=== PATIENT | male | born 1980 | race Hispanic/Latino ===

== ENCOUNTER 2024-11-09 12:30 | Emergency (ER) | payer OTHER ==
--- OUTSIDE RECORDS SUMMARY | 2024-11-09 13:04 | XMS REPORT | Continuity of Care Document ---
Author Name Unknown Address [address] [facility] [address] [place] [address] [facility] thconnect Address [address] [facility] [place] [place] [address] Care Team Providers Care Collections Rep Name Role Phone Kenny ELLIS, Dayanara Barros [facility] LONNY SALAMANCA Attending Clinician Benny Hutton MD, Lonny Osorio Attending Clinician [phone] Pia Ramos RN Attending Clinician RIO Conrad Attending Clinician TESSA Ricci Attending Clinician LONNY Elena Admitting Clinician Benny Hutton MD, Lonny Osorio Admitting Clinician [phone] DEEDEE HARLEY Admitting Clinician Ankur galindo Payers Payer Name Policy Type Policy Number Effective Date Expirati on Date Source [employer] COMM [id number] 2012 00:00:00 Problems Condition Name Condition Details Condition Category Status Onset Date Resolution Date Last Treatment Date Treating Clinician Comments Source Chronic neck pain Chronic neck pain Disease Active 2023-09 00:00: 00 Hiral Smith Chronic pain syndrome Chronic pain syndrome Disease Active 2023-09 00:00: 00 Hiral tinoco [place] Smith Current smoker Current smoker Disease Active 2023-09 00:00: 00 Hiral Smith Hypertensi on Hypertensi on Disease Active 2023-09 00:00: 00 Hiral tinoco [place] Smith Numbness of right hand Numbness of right hand Disease Active 2023-09 00:00: 00 Hiral tinoco [facility] Social History Social Habit Start Date Stop Date Quantity Comments Source Gender identity 2023-12-14 00:20:35 Identifies as male gender (finding) [facility] History of tobacco use Cigarette Smoker [facility] Sexual orientation [facility] Alcoholic beverage intake 2024-08-03 00:00:00 2024-08-03 00:00:00 Ex-drinker (finding) [facility] History of Social function 2024-08-03 00:00:00 2024-08-03 00:00:00 [facility] Smoking Status Start Date Stop Date Source Smokes tobacco daily 2024-07-28 00:00:00 [facility] Medications Ordered Medication Name Filled Medication Name Start Date Stop Date Current Medication? Ordering Clinician Indication Dosage Frequency Signature (SIG) Comments Components Source oxyCODONE (Roxicodone ) immediate release tablet 5 mg oxyCODONE (Roxicodone ) immediate release tablet 5 mg 2023-09 11:33: 51 Yes 5mg Q4H [Order 1 Start] Name: oxyCODONE (Roxicodon e) immediate release tablet 5 mg Signed Summary: 5 mg, Oral, Every 4 hours PRN, moderate pain (4-6), Starting on Fri08/03/24 at 1133, For 2 doses, Recovery (only) [Order 1 End] [Order 2 Start] Name: oxyCODONE (Roxicodon e) immediate release tablet 10 mg Signed Summary: 10 mg, Oral, Every 4 hours PRN, severe pain (7-10), Starting on Fri08/03/24 at 1133, For 2 doses, Recovery (only) [Order 2 End] Hiral Smith glucagon injection 1 mg glucagon injection 1 mg 2023-09 11:33: 41 Yes 1mg 1 mg, Intramuscu lar, As needed, For BG < 70 mg/dL if no IV access and patient is either Unconsciou s, unable to swallow or npo, Starting on Fri08/03/24 at 1133, Recovery (only), For BG < 70 mg/dL if no IV access and patient is either Unconsciou s, unable to swallow or npo and notify MD. Hiral Ponce [facility] dextrose 50 % solution 25 g dextrose 50 % solution 25 g 2023-09 11:33: 41 Yes 25g 25 g, Intravenou s, As needed, other, if Blood Glucose </= 50 mg/dL, Starting on Fri08/03/24 at 1133, Recovery (only), If BG </=50 mg/dL, give 50 mL of D50W IV push STAT and notify MD. Hiral Smith dextrose 50 % solution 12.5 g dextrose 50 % solution 12.5 g 2023-09 11:33: 41 Yes 12.5g 12.5 g, Intravenou s, As needed, low blood sugar, if Blood Glucose 51- 69 mg/dL, Starting on Fri08/03/24 at 1133, Recovery (only), For BG 51-69 mg/dL and patient UNCONSCIOU S OR UNABLE TO SWALLOW OR NPO: Give 25 mL of D50W IV push and notify MD. Hiral Smith dexAMETHaso ne (Decadron) injection 4 mg dexAMETHaso ne (Decadron) injection 4 mg 2023-09 11:33: 41 Yes 4mg 4 mg, Intravenou s, Once as needed, nausea/vom iting not responsive to ondansetro n., Starting on Fri08/03/24 at 1133, For 1 dose, Recovery (only) Hiral Smith ondansetron (Zofran) injection 4 mg ondansetron (Zofran) injection 4 mg 2023-09 11:33: 41 Yes 4mg 4 mg, Intravenou s, Once as needed, nausea, vomiting, Starting on Fri08/03/24 at 1133, For 1 dose, Recovery (only), May repeat once (maximum dose = 8mg). Do not repeat if patient has received Ondansetro n intraopera tively. Hiral Smith albuterol (2.5 MG/3ML) 0.083% nebulizer solution 2.49 mg albuterol (2.5 MG/3ML) 0.083% nebulizer solution 2.49 mg 2023-09 11:33: 41 Yes 2.49mg 2.49 mg, Nebulizati on, Every 20 min PRN, wheezing, Starting on Fri08/03/24 at 1133, Recovery (only) Hiral Ponce Epic diphenhydrA MINE (BENADryl) injection 12.5 mg diphenhydrA MINE (BENADryl) injection 12.5 mg 2023-09 11:33: 41 Yes 12.5mg 12.5 mg, Intravenou s, Once as needed, itching, Starting on Fri08/03/24 at 1133, For 1 dose, Recovery (only) Hiral Smith naloxone (Narcan) injection 0.04 mg naloxone (Narcan) injection 0.04 mg 2023-09 11:33: 41 Yes .04mg 0.04 mg, Intravenou s, As needed, opioid reversal, every 2 minutes PRN to reverse sedation, Starting on Fri08/03/24 at 1133, For 8 doses, Recovery (only), Keep available for immediate use. Stop epidural infusion. Call Anesthesio logist STAT and Notify Pain Service (Dilute 0.4mg/mL in 9 mL saline) Hiral Smith HYDROmorpho ne (Dilaudid) injection 0.5 mg HYDROmorpho ne (Dilaudid) injection 0.5 mg 2023-09 11:33: 41 Yes .5mg 0.5 mg, Intravenou s, Every 10 min PRN, severe pain (7-10), Starting on Fri08/03/24 at 1133, For 4 doses, Recovery (only), Hold for respirator y rate or 8 or less. Hiral Ponce Epic HYDROmorpho ne (Dilaudid) injection 0.25 mg HYDROmorpho ne (Dilaudid) injection 0.25 mg 2023-09 11:33: 41 Yes .25mg 0.25 mg, Intravenou s, Every 10 min PRN, moderate pain (4-6), Starting on Fri08/03/24 at 1133, For 4 doses, Recovery (only), Hold for respirator y rate or 8 or less. Hiral Smith labetalol injection 10 mg labetalol injection 10 mg 2023-09 11:33: 41 Yes 10mg 10 mg, Intravenou s, Every 5 min PRN, high blood pressure, Systolic blood pressure greater than 160 mmHg and/or Diastolic blood pressure greater than 90 mmHg. Hold if Heart Rate less than 60 beats per minute., Starting on Fri08/03/24 at 1133, Recovery (only) Hiral Smith hydrALAZINE injection 10 mg hydrALAZINE injection 10 mg 2023-09 11:33: 41 Yes 10mg 10 mg, Intravenou s, Every 20 min PRN, high blood pressure, Systolic blood pressure greater than 160 mmHg and/or Diastolic blood pressure greater than 90 mmHg. Hold is Heart Rate greater than 100 beats per minute., Starting on Fri08/03/24 at 1133, For 2 doses, Recovery (only) Hiral Smith sodium chloride 0.9 % infusion sodium chloride 0.9 % infusion 2023-09 08:15: 00 Yes 50mL/h 50 mL/hr, Intravenou s, Continuous , Starting on Fri08/03/24 at 0815, Preprocedu re, Anesthesia Pre-op Hiral Smith lactated Ringer's infusion lactated Ringer's infusion 2023-09 08:15: 00 Yes 75mL/h 75 mL/hr, Intravenou s, Continuous , Starting on Fri08/03/24 at 0815, Preprocedu re, Anesthesia Pre-op Hiral Smith omeprazole (PriLOSEC) [address] capsule omeprazole (PriLOSEC) [address] capsule 03-01 00:00: 00 Yes 1{capsu le} QD Take 1 capsule by mouth 1 time each day. Hiral Smith LISINOPRIL PO LISINOPRIL PO 2021- 9- 00:00: 00 Yes 40mg 40 mg, PO, Daily, 0 Refill(s) Hiral Ponce [facility] Vital Signs Vital Name Observation Time Observation Value Comments Blanca russell Systolic blood pressure 2024-08-03 12:55:00 140 mm[Hg] [facility] Diastolic blood pressure 2024-08-03 12:55:00 85 mm[Hg] [facility] Heart rate 2024-08-03 12:55:00 67 /[facility] saturation in Arterial blood by Pulse oximetry 2024-08-03 12:55:00 99 /min [facility] Respiratory rate 2024-08-03 11:40:00 16 /min [facility] Body temperature 2024-08-03 11:30:00 36.5 Melanie [facility] Systolic blood pressure 2024-08-03 12:55:00 140 mm[Hg] [facility] Diastolic blood pressure 2024-08-03 12:55:00 85 mm[Hg] [facility] Heart rate 2024-08-03 12:55:00 67 /min [facility] Oxygen saturation in Arterial blood by Pulse oximetry 2024-08-03 12:55:00 99 /min [facility] Respiratory rate 2024-08-03 11:40:00 16 /min [facility] Body temperature 2024-08-03 11:30:00 36.5 Melanie [facility] Procedures Procedure Date / Time Performed Performing Clinicia n Source POCT glucose meter docked device 2024-09-02 00:00:00 [facility] ARTHROSCOPY, KNEE 2024-08-03 10:09:00 Lonny Salamanca [facility] ARTHROSCOPY, KNEE 2024-08-03 09:30:00 Lonny Salamanca [facility] POCT glucose meter docked device 2024-08-03 00:00:00 [facility] Oxygen Therapy - Patient Type: Adult; Device: Simple Face Mask; Rate in liters per minute: 6 Lpm; Follow Respiratory Pathway: Yes [facility] Encounters Start Date/Time End Date/Time Encounter Type Admission Type Attending [facility] Care Facility Care Department Encounter ID Source 2024-08-31 11:31:55 2024-08-31 11:31:55 Outpatient SFA SFA [id number] Timothy Arciniega 2024-08-03 06:58:00 2024-08-03 12:55:00 Outpatient Elective LONNY SALAMANCA MHESE ESE [id number] ESE 2024-08-03 06:58:00 2024-08-03 12:55:00 Hospital Encounter SalamancaAdamarisn [facility] [id number] Memoria l Kris Epic 2024-07-28 11:32:00 2024-07-28 13:43:16 Outpatient Elective ESE ESE [id number] ESE 2024-07-27 00:00:00 2024-07-27 14:14:25 [facility] [id number] [facility] [place] [facility] 2023-12-29 16:28:54 2023-12-29 16:28:54 Outpatient SFA [facility] [id number] Timothy Arciniega 2023-12-16 08:00:57 2023-12-16 08:00:57 Outpatient SFA [id number] [id number] Timothy Arciniega 2023-12-10 18:29:00 2023-12-11 00:31:00 Emergency E RIO MARQUES [facility] [id number] [facility] 2023-12-04 16:40:00 2023-12-05 13:45:00 Outpatient JADYN LONNY [facility] [id number] [facility] 2022-06-16 09:34:00 2022-06-18 15:22:00 Inpatient U TESSA DELGADO [facility] [id number] [facility] [place] [facility] Procedure Notes Date/Time Note Provider Source 2024-08-03 10:09:00 Date: 08/03/2024 Diagnosis: Pre-op Diagnosis * Chondromalacia patellae, 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 Anteriomedial plica, and deficient ACL Procedures: Arthroscopy left knee, Chondroplasty MFC, Excision anteromedial plica left knee Surgeons: * Lonny Salamanca - Primary Specimen Collector: Specimen Collector: OMAR Matos Anesthesia: General Estimated Blood Loss: None Drains: * None in log * Urine Output: None Indications: Roma Estrada is an 44 y.o. male . The risks, benefits, and alternatives of the above procedure were discussed and the patient elected to proceed. Procedure Details: The patient was seen in the preoperative area. The site of surgery was properly noted/marked if necessary per policy. The patient has been actively warmed in preoperative area. Preoperative antibiotics have been ordered and given within 1 hours of incision. Venous thrombosis prophylaxis have been ordered including chemical prophylaxis Technique: The patient was brought to the operating suite placed supine position where adequate endotracheal anesthesia was obtained. Tourniquet was placed around the left upper thigh. The left leg placed in leg carey. The left leg was prepped with the Chloraseptic and sterilely draped in the usual fashion. Procedure began by exsanguinating the leg with an Esmarch bandage and raising the tourniquet to 3 and 50 mmHg. The small incision was made in the anterolateral anterior portal and instrumentation was through the anteromedial inferior portal. The arthroscopic sheath and trocar were inserted through to the anterior lateral intraportal. The joint was viewed and was found that there was a normal medial meniscus however towards the knee the lateral side of the medial femoral condyle was a grade III chondromalacia. The this was treated through the medial portal with a 30 degree angled werewolf vapor wand. The anterior cruciate was appropriate was found to be very lax and possibly torn from the femoral side but had reattached to the capsule posteriorly. The lateral femoral condyle lateral tibial plateau and lateral meniscus were entirely normal. Trochlear groove was normal. Patella was normal. There was a large medial patellofemoral femoral and/or thickening of the capsule which was reduced in size with the vapor wand. No other abnormality was identified in the joint therefore all tubes and drains removed holes were sutured with 3-0 nylon injected half percent Marcaine. Compressive dressing was applied. The leg was removed from leg carey. The patient was awakened taken recovery in satisfied condition. Findings: Implants Procedure for cancer: Procedure for Cancer?: No Complications: No Disposition: PACU Condition: stable Attending Attestation: I was present and scrubbed for the entire procedure. AT CDL DRIVER Orthopedic Surgery Physician Sharon Ponce Notes Date/Time Note Provider Source Referral ID Status Reason Start Date Expiration Date Visits Re quested Visits Authorized [id number] [id number]36Scheduled Orders Scheduled Procedures Name Priority Associated Diagnoses Date/Ti me ARTHROSCOPY, KNEE Chondromalacia patellae , left knee 08/03/2024 10:09 AM HAZMAT CDL DRIVER Health Maintenance Due Date Last Done Comments Lipid Panel 1982 Annual Physical 1985 Pneumococcal Vaccine: Pediat rics (0 to 5 Years) and At-Risk Patients (6 to 64 Years) (1 of 2 - PCV) 1988 Varicella Vaccines (1 of 2 - 13+ 2-dose series) 1995 DTaP/Tdap/Td Vaccines (1 - Tdap) 2001 Hepatitis A Vaccines (1 of 2 - Risk 2-dose series) 2001 Hepatitis B Vaccines (1 of 3 - 19+ 3-dose series) 2001 Influenza Vaccine (#1) 2024 HIB Vaccines Aged Out No longer eligi ble based on patient's age to complete this topic HPV Vaccines Aged Out No longer eligi ble based on patient's age to complete this topic IPV Vaccines Aged Out No longer eligi ble based on patient's age to complete this topic Meningococcal Vaccine Aged Out No xavier ale eligible based on patient's age to complete this topic Rotavirus Vaccines Aged Out No longer eligible based on patient's age to complete this topic [id number] 13:59:36 [id number] 11:43:49 Images from the original note were not included. [id number] Knee Arthroscopy Knee problems can often be diagnosed and treated with a technique called arthroscopy. This type of surgery is done using a tool called an arthroscope (scope). Only a few small incisions are needed for this surgery. The procedure can be used to diagnose a knee problem. In many cases, treatment can also be done using arthroscopy. The arthroscope The scope lets the healthcare provider look directly into the knee joint. It is about the size of a pencil and has a pathway for fluids. It also contains coated glass fibers that beam an intense, cool light into the knee joint. A camera is attached to the scope as well. It provides clear images of most areas in your knee joint. The provider sees these images on a screen. Preparing for the procedure ? Have lab or other testing done as advised. ? Tell your healthcare provider about any medicines or supplements you take. ? Follow all instructions your provider gives you for not eating or drinking before the procedure. ? Once you arrive for surgery, you will be given an IV (intravenous) line in your arm or hand. This provides fluids and medicines. ? To keep you pain-free during the surgery, you?ll receive medicine called anesthesia. You may have: o General anesthesia. This puts you into a deep sleep during the surgery. o Regional anesthesia. This numbs the body from the waist down. Or it numbs a larger part of the leg that is being operated on. o Local anesthesia. This numbs just the knee. Along with regional or local anesthesia, you may receive sedation. This medicine makes you relaxed and sleepy during the surgery. The procedure ? A few small incisions (portals) are made in your knee. ? The scope is inserted through a portal. ? Sterile fluid is put into the knee joint. This makes it easier to see and work inside your joint. ? Using the scope, the healthcare provider confirms the type and degree of knee damage. If possible, the problem is treated at this time. This is done using surgical tools put through the other incisions. ? When the surgery is done, all tools are taken out. The incisions are closed with stitches, reina, surgical glue, or strips of surgical tape. Risks and possible complications of arthroscopy All surgeries have risks. The risks of arthroscopy include: ? Bleeding ? Infection ? Blood clots ? Swelling and stiffness of the knee ? Injury to normal tissue ? Continuing knee problems Last Reviewed Date: 2023 00:00:00 ? [id number] [employer]. All rights reserved. This information is not intended as a substitute for professional medical care. Always follow your healthcare professional's instructions. [facility] General Surgery Registered NursePamoHCA [facility] [id number] 11:33:20 SV, no changes to dentition or oral mucosa from preop status, eyes protected at all times during anesthesia care [facility] Anesthesiology[facility] [id number] 14:14:53Upcoming Encounters Scheduled Procedures Name Priority Associated Diagnoses Date/Ti me ARTHROSCOPY, KNEE Chondromalacia patellae , left knee 08/03/2024 9:30 AM HAZMAT CDL DRIVER Health Maintenance Due Date Last Done Comments Lipid Panel 1982 Annual Physical 1985 Pneumococcal Vaccine: Pediat rics (0 to 5 Years) and At-Risk Patients (6 to 64 Years) (1 of 2 - PCV) 1988 Varicella Vaccines (1 of 2 - 13+ 2-dose series) 1995 DTaP/Tdap/Td Vaccines (1 - Tdap) 2001 Hepatitis A Vaccines (1 of 2 - Risk 2-dose series) 2001 Hepatitis B Vaccines (1 of 3 - 19+ 3-dose series) 2001 Influenza Vaccine (#1) 2024 HIB Vaccines Aged Out No longer eligi ble based on patient's age to complete this topic HPV Vaccines Aged Out No longer eligi ble based on patient's age to complete this topic IPV Vaccines Aged Out No longer eligi ble based on patient's age to complete this topic Meningococcal Vaccine Aged Out No xavier ale eligible based on patient's age to complete this topic Rotavirus Vaccines Aged Out No longer eligible based on patient's age to complete this topic [facility]
[2024-11-09 13:39] LABS: Absolute Basophils 0.1 K/uL (0-0.5); Absolute Eosinophils 0.2 K/uL (0-0.5); Absolute Lymphocytes (CBC) 2.1 K/uL (0.7-4.9); Absolute Monocytes 0.5 K/uL (0.1-1.3); Absolute Neutrophil 4.5 K/uL (1.8-8.0); Basophils % 1.2 % (0-1.3); Eosinophils % 2.2 % (0-4.4); Hematocrit 43.9 % (39.6-49.0); Hemoglobin 15.3 g/dL (13.6-17.9); Lymphocytes % 29.2 % (15.3-44.8); MCH 34.8 pg (27.0-35.0); MCHC 34.9 g/dL (32.0-36.0); MCV 99.8 fL (80-100); MPV 7.4 fL (7.6-11.3); Monocytes % 6.3 % (3.3-12.3); Neutrophils % 61.1 % (41.7-73.7); Platelets 270 thou/uL (152-406); Red Cell Distribution Width 12.6 % (12.1-15.2)
--- NOTE | 2024-11-09 13:44 | RAD REPORT ---
EXAM: CT brain without contrast HISTORY: MENTAL STATUS CHANGE COMPARISON: None TECHNIQUE: Multiple contiguous axial images were obtained and a CT of the brain without contrast. Sag ittal and coronal reformats were performed. One or more of the following dose reduction techniques were used: Automated exposure control, adjust ment of the mA and/or kV according to patient size, and/or iterative reconstruction. FINDINGS: No evidence of hydrocephalus, intracranial hemorrhage, or extra-axial fluid collection. The brain is normal in morphology. No evidence of midline shift or areas of brain edema. The calvarium is intact. Mild polypoid mucosal thickening noted in the paranasal sinuses. IMPRESSION: No evidence of acute intracranial abnormality.
[2024-11-09 13:51] LABS: PT Prothrombin Time 11.1 SECONDS (9.4-12.5); PTT, Activated Partial Thromb 31.4 SECONDS (24.3-36.9); Protime INR 1.06
[2024-11-09 14:12] LABS: Barbiturates NEGATIVE (NEGATIVE); Benzodiazepines POSITIVE (NEGATIVE); Cocaine POSITIVE (NEGATIVE); METHAMPHETAM NEGATIVE (NEGATIVE); Methadone NEGATIVE (NEGATIVE); Opiates POSITIVE (NEGATIVE); Phencyclidine NEGATIVE (NEGATIVE); THC Cannibis NEGATIVE (NEGATIVE)
[2024-11-09 14:12] LABS: ALT/SGPT 22 U/L (16-61); AST/SGOT 14 U/L (15-37); Albumin 4.2 g/dL (3.4-5.0); Albumin/Globulin Ratio 1.1 (1.1-1.8); Alkaline Phosphatase 76 U/L (45-117); Anion Gap 7.5 mEq/L (5.0-15.0); BUN Blood Urea Nitrogen 4 mg/dL (7-18); Bicarbonate 28 mEq/L (21-32); Bilirubin Total 0.4 mg/dL (0.2-1.0); Globulin 3.7 g/dL (2.3-3.5); Glomerular Filtration Rate 110 ml/min (=/>90); Glucose Level 84 mg/dL (74-106); Potassium 3.5 mEq/L (3.5-5.1); Protein, Total 7.9 g/dL (6.4-8.2); Sodium Level 136 mEq/L (136-145)
[2024-11-09 14:14] LABS: Bilirubin Direct < 0.2 mg/dL (0-0.2); Bilirubin Indirect, Calculated 0.2 mg/dL (0.2-0.8)
--- NOTE | 2024-11-09 15:06 | ER ---
Nurse's Notes [facility] Name: Benjamin Winchester Age: 44 yrs Sex: Male : 1980 Arrival Date: 11/09/2024 Time: 12:30 Bed 9 Private MD: Diagnosis: Polysubstance abuse Presentation: 11/09 12:44 Chief complaint: EMS states: toned out for unresponsive, he was found in his car iw sleeping since 8 am, he took xanax, soma, and codeine to sleep, he was hypertensive , he refused any treatment. Coronavirus screen: At this time, the client does not indicate any symptoms associated with coronavirus-19. Initial Sepsis Screen: Does the patient meet any 2 criteria? No. Patient's initial sepsis screen is negative. Does the patient have a suspected source of infection? No. Patient's initial sepsis screen is negative. 12:44 Method Of Arrival: EMS: [facility] iw 12:44 Acuity: JOANA 3 iw 12:45 Ebola Screen: Patient negative for fever greater than or equal to 101.5 degrees iw Fahrenheit, and additional compatible Ebola Virus Disease symptoms No symptoms or risks identified at this time. Risk Assessment: Do you want to hurt yourself or someone else? Patient reports no desire to harm self or others. Onset of symptoms was November 09, 2024. Triage Assessment: 12:45 General: Appears in no apparent distress. Behavior is drowsy. iw Historical: - Allergies: 12:47 No Known Allergies; iw - PMHx: 12:47 Hypertensive disorder; iw - PSHx: 12:47 herniated disc; iw - Infectious Disease History:: Denies. - Social history:: Smoking status: Patient reports the use of cigarette tobacco products, smokes one pack cigarettes per day. Patient uses street drugs. Screenin:00 [facility] ED Fall Risk Assessment (Adult) History of falling in the last 3 months, iw including since admission No falls in past 3 months (0 pts) Confusion or Disorientation No (0 pts) Intoxicated or Sedated Yes (3 pts) Impaired Gait No (0 pts) Mobility Assist Device Used No (0 pt) Altered Elimination No (0 pt) Score/Fall Risk Level 3 or more points = High Risk Oriented to surroundings. Abuse screen: Denies threats or abuse. Denies injuries from another. Nutritional screening: No deficits noted. Tuberculosis screening: No symptoms or risk factors identified. Assessment: 12:45 General: Appears in no apparent distress. Behavior is drowsy. Pain: Denies pain. Neuro: iw Level of Consciousness is awake, alert, obeys commands, Oriented to person, place, time, situation, Moves all extremities. Cardiovascular: Capillary refill < 3 seconds in bilateral fingers. Respiratory: Respiratory effort is even, unlabored, Respiratory pattern is regular, symmetrical. GI: Abdomen is non-distended. Derm: Skin is intact, is healthy with good turgor. Musculoskeletal: Range of motion: intact in all extremities. 15:00 Reassessment: Patient appears in no apparent distress at this time. Patient and/or iw family updated on plan of care and expected duration. Pain level reassessed. Patient is alert, oriented x 3, equal unlabored respirations, skin warm/dry/pink. Vital Signs: 12:49 BP 151 / 100; Pulse 77; Resp 16; Temp 97.6; Pulse Ox 100% on R/A; Weight 95.25 kg; iw Height 5 ft. 9 in. ; 14:56 BP 142 / 95; Pulse 61; Resp 16; Temp 98.7; Pulse Ox 100% on R/A; iw 12:49 Body Mass Index 31.01 (95.25 kg, 175.26 cm) iw ED Course: 12:36 Patient arrived in ED. bd 12:44 Arm band placed on. iw 12:45 Triage completed. iw 12:45 Patient has correct armband on for positive identification. Provided Education on: . iw 12:58 Daina Haile FNP-C [facility]. kb 12:58 Luis Angel Mayes MD is Attending Physician. kb 13:34 Acetaminophen Sent. bc6 13:34 Basic Metabolic Panel Sent. bc6 13:34 CBC with Diff Sent. bc6 13:34 ETOH Level Sent. bc6 13:34 Hepatic Function Sent. bc6 13:34 PT-INR Sent. bc6 13:34 Ptt, Activated Sent. bc6 13:34 Salicylate Sent. bc6 13:34 Urine Drug Screen Sent. bc6 13:35 Initial lab(s) drawn, by me, sent to lab. Inserted saline lock: 18 gauge in right bc6 antecubital area, using aseptic technique. Blood collected. Flushed with 10 mL NS. 13:36 CT Head Brain wo Cont In Process Unspecified. EDMS 14:15 Jasmyne Negerte, RN is Primary Nurse. iw 14:15 Jasmyne Negrete, RN is Primary Nurse. iw 15:36 No provider procedures requiring assistance completed. IV discontinued, intact, iw bleeding controlled, No redness/swelling at site. Pressure dressing applied. Administered Medications: No medications were administered Medication: 12:45 VIS not applicable for this client. iw Outcome: 15:05 Discharge ordered by MD. tenorio 15:37 Discharged to home ambulatory, iw 15:37 Condition: good 15:37 Discharge instructions given to patient, Instructed on discharge instructions, follow up and referral plans. Demonstrated understanding of instructions, follow-up care, 15:38 Patient left the ED. iw Signatures: Dispatcher [employer] EDMS Daina Haile, RETAIL ADVERTISING EXECUTIVE-C RETAIL ADVERTISING EXECUTIVE-CkIvana Marcus Irene, RN RN iw Fannie Ramirez bc6
--- NOTE | 2024-11-09 15:06 | EDPHYS ---
Physician Documentation [facility] Name: Benjamin Winchester Age: 44 yrs Sex: Male : 1980 Arrival Date: 11/09/2024 Time: 12:30 Bed 9 Private MD: ED Physician Luis Angel Mayes HPI: 11/09 13:26 This 44 yrs old Male presents to ER via EMS with complaints of High Blood kb Pressure. 13:26 Patient is a 44-year-old male who is brought in by EMS after being found sleeping in his car just prior to arrival. Neighbors report patient has been in his car since around 8:00 this morning. Patient states he is just been very tired because he worked a lot over the last couple of days. States he went into work at 10 PM got off at 815 and then was found sleeping in his car. Reports he does take hydrocodone and Soma for back pain but this is not new. Only complaint is fatigue.. Historical: - Allergies: 12:47 No Known Allergies; iw - PMHx: 12:47 Hypertensive disorder; iw - PSHx: 12:47 herniated disc; iw - Infectious Disease History:: Denies. - Social history:: Smoking status: Patient reports the use of cigarette tobacco products, smokes one pack cigarettes per day. Patient uses street drugs. ROS: 13:26 Constitutional: As per HPI kb Exam: 13:26 Constitutional: This is a well developed, well nourished patient who is awake, alert, kb and in no acute distress. Head/Face: Normocephalic, atraumatic. ENT: Moist Mucous membranes Cardiovascular: Regular rate Respiratory: Respirations even and unlabored. No increased work of breathing. Talking in full sentences Abdomen/GI: Soft, non-tender. No distention Skin: Warm, dry with normal turgor. Normal color. MS/ Extremity: Pulses equal, no cyanosis. Neurovascular intact. Full, normal range of motion. Neuro: Awake and alert, GCS 15, oriented to person, place, time, and situation. 13:27 Neuro: Cranial nerves: Speech is slowed, kb Vital Signs: 12:49 BP 151 / 100; Pulse 77; Resp 16; Temp 97.6; Pulse Ox 100% on R/A; Weight 95.25 kg; iw Height 5 ft. 9 in. ; 14:56 BP 142 / 95; Pulse 61; Resp 16; Temp 98.7; Pulse Ox 100% on R/A; iw 12:49 Body Mass Index 31.01 (95.25 kg, 175.26 cm) iw MDM: 12:59 Medical Screening Exam initiated kb 13:27 Data reviewed: vital signs, nurses notes. kb 15:03 Differential diagnosis: polysubstance abuse, ICH, arrhythmia. Counseling: I had a kb detailed discussion with the patient and/or guardian regarding the historical points, exam findings, and any diagnostic results supporting the discharge/admit diagnosis, lab results, radiology results, the need for outpatient follow up, a family practitioner, to return to the emergency department if symptoms worsen or persist or if there are any questions or concerns that arise at home. 11/09 13:10 Order name: Acetaminophen; Complete Time: 14:26 kb 11/09 13:10 Order name: Basic Metabolic Panel; Complete Time: 14:26 kb 11/09 13:10 Order name: CBC with Diff; Complete Time: 13:41 kb 11/09 13:10 Order name: ETOH Level; Complete Time: 14:26 kb 11/09 13:10 Order name: Hepatic Function; Complete Time: 14:26 kb 11/09 13:10 Order name: PT-INR; Complete Time: 13:51 kb 11/09 13:10 Order name: Ptt, Activated; Complete Time: 13:51 kb 11/09 13:10 Order name: Salicylate; Complete Time: 14:28 kb 11/09 13:10 Order name: Urine Drug Screen; Complete Time: 14:26 kb 11/09 13:10 Order name: CT Head Brain wo Cont; Complete Time: 13:47 kb 11/09 13:10 Order name: IV Saline Lock; Complete Time: 13:34 kb 11/09 13:10 Order name: Labs collected and sent; Complete Time: 13:34 kb 11/09 14:38 Order name: Vital Signs; Complete Time: 14:57 kb Administered Medications: No medications were administered Disposition Summary: 11/09/24 15:05 Discharge Ordered Notes: Location: Home kb Condition: Stable kb Diagnosis - Polysubstance abuse kb Followup: kb - With: Emergency Department - When: As needed - Reason: Worsening of condition Followup: kb - With: Private Physician - When: 2 - 3 days - Reason: Recheck today's complaints, Continuance of care, Re-evaluation by your physician Discharge Instructions: - Discharge Summary Sheet kb - Illegal Drug Use Information, Adult kb Forms: - Medication Reconciliation Form kb - Antibiotic Education kb - Prescription Opioid Use kb - Patient Portal Instructions kb - Leadership Thank You Letter kb Signatures: Dispatcher [employer] EDMS Daina Haile, CLOTH EXAMINER HAND-C CLOTH EXAMINER HAND-Jasmyne Gregorio RN RN iw Corrections: (The following items were deleted from the chart) 13:11 13:11 ACETAMINOPHEN+C.LAB.BRZ ordered. EDMS EDMS 13:11 13:11 BASIC METABOLIC PANEL+C.LAB.BRZ ordered. EDMS EDMS 13:11 13:11 CBC+H.LAB.BRZ ordered. EDMS EDMS 13:11 13:11 ETHANOL+C.LAB.BRZ ordered. EDMS EDMS 13:11 13:11 HEPATIC FUNCTION+C.LAB.BRZ ordered. EDMS EDMS 13:11 13:11 PROTIME (+INR)+COAG.LAB.BRZ ordered. EDMS EDMS 13:11 13:11 PTT, ACTIVATED+COAG.LAB.BRZ ordered. EDMS EDMS 13:11 13:11 SALICYLATE+C.LAB.BRZ ordered. EDMS EDMS 13:11 13:11 URINE DRUG SCREEN+UC.LAB.BRZ ordered. EDMS EDMS 13:11 13:11 Head Brain Wo Cont+CT.RAD.BRZ ordered. EDMS EDMS 13:28 13:26 Constitutional: This is a well developed, well nourished patient who is awake, kb alert, and in no acute distress. Head/Face: Normocephalic, atraumatic. ENT: Moist Mucous membranes Cardiovascular: Regular rate Respiratory: Respirations even and unlabored. No increased work of breathing. Talking in full sentences Abdomen/GI: Soft, non-tender. No distention Skin: Warm, dry with normal turgor. Normal color. MS/ Extremity: Pulses equal, no cyanosis. Neurovascular intact. Full, normal range of motion. Neuro: Awake and alert, GCS 15, oriented to person, place, time, and situation. kb
[2024-11-09 18:08] VITALS: BP 172/106; TEMP 97.8; O2SAT 98
== END 2024-11-09 15:38 | disposition home or self-care (01) ==
LOC: ER 12:30
DX: F19.10 Other psychoactive substance abuse, uncomplicated (principal); I10 Essential (primary) hypertension; F17.210 Nicotine dependence, cigarettes, uncomplicated
CPT/HCPCS: 36415; 70450; 80048; 80076; 80143; 80179; 80307; 82077; 85025; 85610; 85730; 99284